=== PATIENT | male | born 1985 | race Two or more races ===

== ENCOUNTER 2018-12-06 16:41 | Emergency (ER) | payer OTHER ==
[~2018-12-06] VITALS: Ht 193 cm; Wt 86.0 kg
[2018-12-06] MEDS ORDERED: KETOROLAC 60MG/2ML VIAL IM ONE (20:30)
[2018-12-06] MEDS ORDERED: KETOROLAC 30MG/ML VIAL IV ONE (20:30)
[2018-12-06] MEDS ORDERED: HYDROCODONE/ACETAMINOPHEN 5/325MG TABLET PO ONE (21:00)
[2018-12-06 21:38] VITALS: BP 113/83
== END 2018-12-06 21:44 | disposition home or self-care (01) ==
LOC: ER 16:41
DX: M54.5 Low back pain (principal); H92.02 Otalgia, left ear
CPT/HCPCS: 96372; 99283; J1885

== ENCOUNTER 2018-12-08 08:55 | Emergency (ER) | payer OTHER ==
[~2018-12-08] VITALS: Ht 193 cm; Wt 86.0 kg
[2018-12-08 09:08] VITALS: BP 143/85
== END 2018-12-08 09:49 | disposition home or self-care (01) ==
LOC: ER 08:55
DX: G89.29 Other chronic pain (principal); M54.5 Low back pain; Z90.49 Acquired absence of other specified parts of digestive tract
CPT/HCPCS: 99283